=== PATIENT | male | born 1995 | race Hispanic/Latino ===

== ENCOUNTER 2019-11-30 | Emergency (ER) | payer SELFPAY ==
--- NOTE | 2019-12-02 11:26 | NUR ---
COVID results called to patient by Arron Purcell - patient Chinese speaking. Patient was encouraged to follow Stay Home - Stay Safe instructions and wash hands frequently.
== END 2019-11-30 16:27 | disposition home or self-care (01) | DRG 153 ==
DX: J06.9 Acute upper respiratory infection, unspecified (principal); Z20.828 Contact with and (suspected) exposure to other viral communicable diseases